=== PATIENT | male | born 1990 | race Two or more races ===

== ENCOUNTER 2016-05-29 17:42 | Emergency (ER) | payer SELFPAY ==
[~2016-05-29] VITALS: Ht 170.2 cm; Wt 72.5 kg
[2016-05-29] MEDS ORDERED: HYDROCODONE/ACETAMINOPHEN 10-325 MG TABLET PO ONE (19:15)
[2016-05-29 20:07] VITALS: BP 121/84
== END 2016-05-29 20:11 | disposition home or self-care (01) ==
LOC: EMS 17:45
DX: S60.052A Contusion of left little finger without damage to nail, initial encounter (principal); S60.042A Contusion of left ring finger without damage to nail, initial encounter; W22.8XXA Striking against or struck by other objects, initial encounter; Y93.89 Activity, other specified; Y92.89 Other specified places as the place of occurrence of the external cause; Y99.8 Other external cause status
CPT/HCPCS: 99284